=== PATIENT | female | born 1980 | race Caucasian/White ===

== ENCOUNTER 2017-03-14 10:30 | Emergency (ER) | payer SELFPAY ==
[2017-03-14 10:38] VITALS: BP 122/79; BMI 33.0
--- NOTE | 2017-03-14 11:22 | DR.GENAD ---
HPI - PCP Primary Care Physician: nfd - Complaint/Symptoms Chief Complaint Doctors Comments: Patient is on amoxicillin has been taking neighbors medication for three days and it is not helping Chief Complaint:: patient stated her left ear has been hurting for a couple of days but now it has her left jaw and nwck hurting. - Source History Provided: Patient - Mode of Arrival Mode of Arrival: Ambulatory - Timing Onset of Chief Complaint: 03/12/17 PMH - PMH Past Medical History: No Past Surgical History: No - Family History History of Family Medical Conditions: No Family Medical History: Diabetes Mellitus, Hypertension - Social History Does patient currently use any type of tobacco product: Yes Have you used tobacco products in the last 12 months: Yes Type of Tobacco Use: Cigarettes How many years tobacco product used: 20 Does any household member use tobacco: No Alcohol Use: None Do you use any recreational Drugs:: No Lives With: Family Lives Where: Home - infectious screening In the last 2 months have you had wt loss of >10#?: NO Have you had fever, night sweats or hemotysis?: No Have you traveled outside the country in the last 6 months?: No Isolation: Standard ROS - Review of Systems Eyes: No Symptoms Reported ENTM: See HPI Respiratoy: No Symptoms Reported Cardiovascular: No Symptoms Reported Gastrointestinal/Abdominal: No Symptoms Reported Genitourinary: No Symptoms Reported Neurological: No Symptoms Reported Musculoskeletal: No Symptoms Reported Integumentary: No Symptoms Reported Hematologic/Lymphatic: No Symptoms Reported Endocrine: No Symptoms Reported Psychiatric: No Symptoms Reported All Other Systems: Reviewed and Negative PE - Vital Signs Vitals: Temperature 98.2 F Pulse Rate 71 Respiratory Rate 16 Blood Pressure 122/79 O2 Sat by Pulse Oximetry 97 - Head Head Exam: Normal Inspection - Eyes Eye exam: Normal Appearance, PERRL, EOMI - ENT ENT Exam: Normal Exam External Ear Exam: Pain with Movement TM/Canal Exam: Left Bulging, Left Perforation Nose Exam: Normal Nose Exam Mouth Exam: Normal Inspection Throat Exam: Normal Inspection - Neck Neck Exam: Normal Inspection - Chest Chest Inspection: Normal Inspection - Respiratory Respiratory Exam: Normal Lung Sounds Bilat Respiratory Exam: Bilateral Clear to Auscultation - Cardiovascular Cardiovascular Exam: Regular Rate, Normal Rhythm - Abdominal Exam Abdominal Exam: Normal Inspection, Normal Bowel Sounds Abdominal Tenderness: negative: RUQ, RLQ, LUQ, LLQ, Epigastrium, Suprapubic, Diffuse, Mild, Moderate, Severe, Other - Extremities Extremities Exam: Normal Inspection, Full ROM - Back Back Exam: Normal Inspection, Full ROM - Neurologic Neurological Exam: Alert, Oriented X3, CN II-XII Intact - Psychiatric Psychiatric Exam: Normal Affect - Skin Skin Exam: Warm, Dry - Diagnosis Discharge Problem: Otitis media Qualifiers: Otitis media type: suppurative Chronicity: acute Laterality: left Recurrence: not specified as recurrent Spontaneous tympanic membrane rupture: with spontaneous rupture Qualified Code(s): H66.012 - Acute suppurative otitis media with spontaneous rupture of ear drum, left ear - Discharge Plan Condition: Stable - Follow ups/Referrals Follow ups/Referrals: NFD,None [Primary Care Provider] - 3 days - Instructions
== END 2017-03-14 11:30 | disposition home or self-care (01) ==
LOC: ER 10:46
DX: H66.012 Acute suppurative otitis media with spontaneous rupture of ear drum, left ear (principal)
CPT/HCPCS: 99281; 99282

== ENCOUNTER 2017-03-15 21:40 | Emergency (ER) | payer OTHER ==
[2017-03-15] MEDS ORDERED: ZOFRAN INJ 4 MG VIAL ONE (21:44)
[2017-03-15] MEDS ORDERED: MORPHINE SULFATE INJ 4 MG ONE (21:44)
[2017-03-15] MEDS ORDERED: ZOFRAN INJ 4 MG VIAL IVP ONE (21:55)
[2017-03-15] MEDS ORDERED: MORPHINE SULFATE INJ 4 MG IVP ONE (21:55)
[2017-03-15] MEDS ORDERED: NS 1000 ML 1,000 ML IV ONE (21:55)
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
[2017-03-15 22:05] VITALS: BMI 33.0
[2017-03-15] MEDS ORDERED: DILAUDID INJ ONE (22:05)
[2017-03-15] MEDS ORDERED: DILAUDID INJ IVP ONE (22:05)
[2017-03-16 00:28] VITALS: BP 122/79
[2017-03-16] MEDS ORDERED: DILAUDID INJ IVP ONE (00:37)
[2017-03-16] MEDS ORDERED: DILAUDID INJ ONE (00:39)
== END 2017-03-16 01:20 | disposition short-term general hospital (02) ==
LOC: ER 21:40
DX: T24.202A Burn of second degree of unspecified site of left lower limb, except ankle and foot, initial encounter (principal); T21.25XA Burn of second degree of buttock, initial encounter
CPT/HCPCS: 96365; 96374; 96375; 99285; A4222; J1170; J2270; J2405

== ENCOUNTER 2017-05-29 17:30 | Emergency (ER) | payer SELFPAY ==
[2017-05-29 17:39] VITALS: BP 122/80; BMI 34.4
--- NOTE | 2017-05-30 10:57 | DR.GENAD ---
HPI - PCP Primary Care Physician: MIRELLA - Complaint/Symptoms Chief Complaint:: PT C/O NAUSEA/LIGHT HEADED/DIZZINESS FOR THE LAST 3 DAYS - Source History Provided: Patient - Mode of Arrival Mode of Arrival: Ambulatory - Timing Onset of Chief Complaint: 05/27/17 PMH - PMH Past Medical History: No Past Surgical History: No - Family History History of Family Medical Conditions: Yes Family Medical History: Diabetes Mellitus, Hypertension - Social History Does patient currently use any type of tobacco product: Yes Have you used tobacco products in the last 12 months: Yes Type of Tobacco Use: Cigarettes How many years tobacco product used: 10 Does any household member use tobacco: No Alcohol Use: None Do you use any recreational Drugs:: No Lives With: Spouse Lives Where: Home - infectious screening In the last 2 months have you had wt loss of >10#?: NO Have you had fever, night sweats or hemotysis?: No Have you traveled outside the country in the last 6 months?: No Isolation: Standard PE - Vital Signs Vitals: Temperature 98.9 F Pulse Rate 73 Respiratory Rate 20 Blood Pressure [Left Arm] 122/79 Blood Pressure 122/80 O2 Sat by Pulse Oximetry 100 - Discharge Plan Disposition: LWBS After Triage Condition: Stable - Follow ups/Referrals Follow ups/Referrals: NFD,None [Primary Care Provider] - 3 days - Instructions
== END 2017-05-29 18:30 | disposition left against medical advice (07) ==
LOC: ER 17:42
DX: R42 Dizziness and giddiness (principal)
CPT/HCPCS: 99281

== ENCOUNTER 2017-06-22 18:24 | Emergency (ER) | payer MEDICAID, OTHER ==
[2017-06-22 18:29] VITALS: BP 153/87; BMI 34.4
--- NOTE | 2017-06-22 19:09 | DR.GENAD ---
HPI - PCP Primary Care Physician: BENJAMIN - Complaint/Symptoms Chief Complaint Doctors Comments: Patient states that she noticed vaginal bleeding two hours ago. She is a female. Chief Complaint:: PT C/O VAGINAL BLEEDING. PT IS 6.5 WEEKS AND SHE STARTED HAVING VAGINAL BLEEDING. PT STATES SHE HAS BEEN CRAMPING THROUGH OUT THE DAY. - Source History Provided: Patient - Mode of Arrival Mode of Arrival: Ambulatory - Timing Onset of Chief Complaint: 06/22/17 PMH - PMH Past Medical History: No Past Surgical History: Yes Past Surgical History Comment: D&C - Family History History of Family Medical Conditions: Yes Family Medical History: Diabetes Mellitus, Hypertension - Social History Does any household member use tobacco: Yes Alcohol Use: None Do you use any recreational Drugs:: No Lives With: Spouse, Family Lives Where: Home - infectious screening In the last 2 months have you had wt loss of >10#?: NO Have you had fever, night sweats or hemotysis?: No Have you traveled outside the country in the last 6 months?: No Isolation: Standard ROS - Review of Systems Eyes: No Symptoms Reported ENTM: No Symptoms Reported Respiratoy: No Symptoms Reported Cardiovascular: No Symptoms Reported Gastrointestinal/Abdominal: No Symptoms Reported Genitourinary: No Symptoms Reported Neurological: No Symptoms Reported Musculoskeletal: No Symptoms Reported Integumentary: No Symptoms Reported Hematologic/Lymphatic: No Symptoms Reported Endocrine: No Symptoms Reported Psychiatric: No Symptoms Reported All Other Systems: Reviewed and Negative PE - Vital Signs Vitals: Temperature 98.6 F Pulse Rate 115 Respiratory Rate 20 Blood Pressure [Left Arm] 122/79 Blood Pressure 153/87 O2 Sat by Pulse Oximetry 97 - General General Appearance: Alert, In No Apparent Distress - Head Head Exam: Normal Inspection, Atraumatic - Eyes Eye exam: Normal Appearance, PERRL, EOMI - ENT ENT Exam: Normal Exam External Ear Exam: Normal External Inspection TM/Canal Exam: Bilateral Normal Nose Exam: Normal Nose Exam Mouth Exam: Normal Inspection Throat Exam: Normal Inspection - Neck Neck Exam: Normal Inspection, Full ROM - Chest Chest Inspection: Normal Inspection, Symmetric Chest Wall Rise - Respiratory Respiratory Exam: Normal Lung Sounds Bilat Respiratory Exam: Bilateral Clear to Auscultation - Cardiovascular Cardiovascular Exam: Regular Rate, Normal Rhythm - Abdominal Exam Abdominal Exam: Normal Inspection Abdominal Tenderness: negative: RUQ, RLQ, LUQ, LLQ, Epigastrium, Suprapubic, Diffuse, Mild, Moderate, Severe, Other - Extremities Extremities Exam: Normal Inspection - Back Back Exam: Normal Inspection - Neurologic Neurological Exam: Alert, Oriented X3, CN II-XII Intact - Psychiatric Psychiatric Exam: Normal Affect, Normal Mood - Skin Skin Exam: Warm, Dry, Intact ROR - Labs Reviewed Laboratory: HCG, Qual Positive >10 mIU/mL 06/22/17 19:28 HCG, Quant 64627 mIU/mL (0-6) H 06/22/17 19:28 - XRAY XRAY Interpreted by: Radiologist (OB US: Findings: aThe uterus measures 7.0x4.4x6.8cm. The left ovary measures 3.7x1.8x2.8cm. The right ovary measures 2.9x1.2x1.7cm. The gestational sac measures 1.2 cm. [place]-rump length measures 3mm. Yolk sac measures 7mm the patient is 5 weeks, 6 days by crown-rump length measurements. No cardiac activity identified at this point. Flow seen to the ovary. Nabothian cysts of the cervix. Impressions: Single early intrauterine as above. Follow up clinically and with ultrasound to document normal developing fetus. No caridac activity identified at this time but the crown rump length is only 3mm. Nabothian cyst of the cervix.) - Diagnosis Discharge Problem: Intrauterine - Discharge Plan Condition: Stable - Follow ups/Referrals Follow ups/Referrals: MALIHA BENJAMIN [Primary Care Provider] - 3 days - Instructions
[2017-06-22 19:56] LABS: SERUM PREGNANCY TEST, QUAL POSITIVE >10 mIU/mL
--- NOTE | 2017-06-22 21:07 | US ---
Ultrasound pelvis Indication: patient with vaginal bleeding. Patient 8 weeks by last menstrual. Technique: Dynamic grayscale Doppler imaging through the pelvis using endovaginal approach. Findings:The uterus measures 7.0 x 4.4 x 6.8 cm. The left ovary measures 3.7 x 1.8 x 2.8 cm. The righ t ovary measures 2.9 x 1.2 x 1.7 cm. The gestational sac measures 1.2 cm. [place]-rump length measures 3 mm. Yolk sac measures 7 mm the evelia ent is 5 weeks, 6 days by crown-rump length measurements. No cardiac activity identified at this point. Flow seen to the ovary. Nabothian cysts of the cervix. Impression: 1. Single early intrauterine as above. Follow-up clinically and with ultrasound to document normal developing fetus. No cardiac activity identified at this time but the crown-rump length is on ly 3 mm. 2. Nabothian cysts of the cervix. Reported By:
== END 2017-06-22 21:30 | disposition home or self-care (01) ==
LOC: ER 18:31
DX: O20.8 Other hemorrhage in early pregnancy (principal); Z3A.01 Less than 8 weeks gestation of pregnancy
CPT/HCPCS: 36415; 76801; 84702; 84703; 99282; 99283; 99284

== ENCOUNTER 2023-10-13 07:30 | Observation (INO) ==
[2023-10-13] MEDS: NOZIN NASAL SANITIZER TP ONE (06:51)
[2023-10-13] MEDS: LR 1,000 ML IV 1,000 ML IV ONE ×2 (07:00→09:21)
[2023-10-13] MEDS: BYFAVO INJ IVP ONE (07:20)
[2023-10-13 07:24] VITALS: BMI 34.4
[2023-10-13] MEDS: NAROPIN 0.75% EPI ONE (07:30)
[2023-10-13] MEDS: ZOFRAN INJ 4 MG VIAL ONE (07:41)
[2023-10-13] MEDS: FENTANYL VIAL INJ 100 mcg ONE ×3 (07:41→09:10)
[2023-10-13] MEDS: NS 100 ML IV 100 ML ONE (07:41)
[2023-10-13] MEDS: REGLAN INJ 10 MG VIAL ONE (07:41)
[2023-10-13] MEDS: BRIDION ONE (07:41)
[2023-10-13] MEDS: DIPRIVAN VIAL 20 ML ONE ×2 (07:41→08:03)
[2023-10-13] MEDS: ANCEF VIAL 1 GRAM ONE (07:41)
[2023-10-13] MEDS ORDERED: ULTANE GAS IN ONE (07:41)
[2023-10-13] MEDS: ZEMURON 100 MG VIAL ONE (07:41)
[2023-10-13] MEDS: PEPCID 20 MG VIAL ONE (07:41)
[2023-10-13] MEDS: DUONEB 0.5 MG/3 MG (3 mL) NEB ONE (07:46)
[2023-10-13] MEDS: MARCAINE 0.25% INJ ONE (08:11)
[2023-10-13] MEDS: TORADOL 30 MG VIAL ONE (09:18)
[2023-10-13] MEDS: ULTANE GAS IN ONE (09:21)
[2023-10-13] MEDS: OFIRMEV IV 1000 MG VIAL 1,000 MG/100 ML VIAL IV ONE (09:22)
[2023-10-13] MEDS: ZYNRELEF 200-6 MG/7 ML VIAL ER SOLN IL ONE (09:27)
[2023-10-13] MEDS: DILAUDID INJ ONE (09:55)
[2023-10-13] MEDS: DILAUDID INJ IVP PRN ×2 (09:56→12:30)
[2023-10-13] MEDS ORDERED: BARHEMSYS INJ IVP PRN (09:58)
[2023-10-13] MEDS ORDERED: REGLAN INJ 10 MG VIAL IVP PRN (09:58)
[2023-10-13] MEDS ORDERED: BENADRYL INJ 50 MG VIAL IVP PRN (09:58)
[2023-10-13] MEDS ORDERED: ZOFRAN INJ 4 MG VIAL IVP PRN (09:58)
[2023-10-13] MEDS: ROXICODONE TAB 15 MG PO PRN (10:31)
[2023-10-13] MEDS ORDERED: ANCEF VIAL 1 GRAM IVP SCH (14:00)
[2023-10-13] MEDS: ROXICODONE TAB 5 MG PO ONE (14:10)
[2023-10-13] MEDS: ANCEF VIAL 1 GRAM 2 G in NS 100 ML IV 100 ML IV SCH (14:46)
[2023-10-13] MEDS: NEURONTIN CAP 100 MG PO SCH (14:46)
[2023-10-13] MEDS: TYLENOL 325 MG TAB PO PRN (14:48)
[2023-10-13] MEDS: SOMA TAB 350 MG PO PRN (18:26)
[2023-10-13] MEDS: NOZIN NASAL SANITIZER TP SCH (21:00)
[2023-10-13] MEDS: COLACE CAP 100 MG PO SCH (21:00)
[2023-10-14 06:24] LABS: BLOOD UREA NITROGEN 3 mg/dL (7-18); CALCIUM 8.4 mg/dL (8.5-10.1); CARBON DIOXIDE 26.3 mmol/L (21-32); CHLORIDE 102 mmol/L (98-107); COR NA(FOR HYPERGLY) 138 mmol/L (136-145); CREATININE 0.62 mg/dL (0.55-1.02); GLUCOSE 115 mg/dL (65-99); POTASSIUM 3.8 mmol/L (3.5-5.1); SODIUM 138 mmol/L (136-145); eGFR NON BLACK RACES > 60 (>60)
--- NOTE | 2023-10-14 06:41 | NOTE.SOAP ---
Soap Note Note for Day of Date of Exam: 10/14/23 Subjective Data Subjective Data: 43 year old female with osteoarthritis who underwent a total ankle replacement (DOS: 10/13/23) to the right lower extremity. Patient was in tears this am, explaining nothing has worked for her from a pain management standpoint. Her pain is located along the incision and experiences pain to move toes. She denies any constitutional symptoms at this time. Objective Data Objective Data: Dressings are c/d/i without strikethrough Neurovascular status intact Able to move toes Assessment Assessment: Patient is a 43 year old female who underwent a right total ankle replacement (DOS:10/13/23) Plan Plan: Patient was seen bedside, in excrutiating pain. She states the dilaudid does not work for her, will try give her demerol. She is not ready for discharge. PT gait train and eval: NWB to the RLE with crutches or walker. Will reevaluate at the end of the day how she's feeling. She will be okay for discharge once pain is tolerable on PO medication.
[2023-10-14] MEDS: ZOFRAN INJ 4 MG VIAL IVP PRN (08:45)
[2023-10-14] MEDS: LOVENOX INJ 40 MG SYR SC SCH (08:46)
[2023-10-14] MEDS: DEMEROL INJ IVP PRN (08:47)
[2023-10-14] MEDS: MAALOX or MYLANTA PO PRN (22:05)
[2023-10-14 23:40] VITALS: O2SAT 94
[2023-10-15 04:18] VITALS: PULSE 88
[2023-10-15 04:59] LABS: BASOPHILS % (AUTO) 0.4 % (0.2-1.0); EOSINOPHILS # (AUTO) 0.2 x10^3/uL (0.0-0.2); EOSINOPHILS % (AUTO) 1.4 % (0.9-2.9); HEMATOCRIT 38.8 % (36.0-47.0); HEMOGLOBIN 13.2 g/dL (12.0-16.0); LYMPHOCYTES # (AUTO) 2.2 X10^3/uL (1.3-2.9); LYMPHOCYTES % (AUTO) 18.9 % (21.0-51.0); MEAN CORPUSCULAR HEMOGLOBIN 30.1 pg (27.0-34.0); MEAN CORPUSCULAR VOLUME 88.7 fL (80.0-100.0); MONOCYTES # (AUTO) 1.6 x10^3/uL (0.3-0.8); MONOCYTES % (AUTO) 13.6 % (0.0-13.0); NEUTROPHILS # (AUTO) 7.7 x10^3/uL (2.2-4.8); NEUTROPHILS % (AUTO) 65.7 % (42.0-75.0); PLATELET COUNT 291 X10^3/uL (150.0-450.0); RED BLOOD COUNT 4.37 X10^6/uL (3.5-5.4); RED CELL DISTRIBUTION WIDTH 13.6 % (11.6-16.5); WHITE BLOOD COUNT 11.7 X10^3/uL (3.6-10.0)
[2023-10-15] MEDS ORDERED: CONSULT PHARMACY - POTASSIUM & MAGNESIUM XX SCH (08:00)
--- NOTE | 2023-10-15 08:13 | NOTE.SOAP ---
Soap Note Note for Day of Date of Exam: 10/15/23 Subjective Data Subjective Data: 43 year old female with osteoarthritis who underwent a total ankle replacement (DOS: 10/13/23) to the right lower extremity. Patient doing significantly better this morning, the demerol helped with breakthrough pain. She is able to move her toes this morning. She denies any constitutional symptoms at this time. Objective Data Objective Data: Dressings are c/d/i without strikethrough Neurovascular status intact Able to move toes Assessment Assessment: Patient is a 43 year old female who underwent a right total ankle replacement (DOS:10/13/23) Plan Plan: Patient was seen bedside, doing much better. Will DC the Demerol and see how patient does on PO pain medication. PT gait train and eval: NWB to the RLE with crutches or walker. She okay for discharge once pain is tolerable on PO medication. Please dispense Rx and instructions in the chart.
[2023-10-15 08:21] VITALS: RESP 20
[2023-10-15 09:30] VITALS: BP 132/64; TEMP 97.3
[2023-10-15] MEDS: K-DUR TAB 20 MEQ PO SCH (10:44)
== END 2023-10-15 13:55 | disposition home or self-care (01) ==
LOC: MED/SURG
PROVIDERS: ADMIT Obstetrics & Gynecology Obstetrics; ATTEND Obstetrics & Gynecology Obstetrics
DX: M12.571 Traumatic arthropathy, right ankle and foot; R26.89 Other abnormalities of gait and mobility